=== PATIENT | male | born 1990 | race Caucasian/White ===

== ENCOUNTER 2020-07-23 18:39 | Emergency (ER) | payer OTHER ==
[~2020-07-23] VITALS: Ht 180.3 cm; Wt 82.1 kg
[2020-07-23 19:24] LABS: BASOPHILS % (AUTO) 0 % (0-1); EOSINOPHILS % (AUTO) 1 % (1-7); LYMPHOCYTES % (AUTO) 20 % (22-44); MEAN CORPUSCULAR HEMOGLOBIN 30.1 pg (27.5-34.5); MEAN CORPUSCULAR HGB CONC 34.6 g/dL (33.2-36.2); MEAN PLATELET VOLUME 8.1 fL (7.4-10.4); MONOCYTES % (AUTO) 7 % (2-9); NEUTROPHILS % (AUTO) 72 % (42-75); PLATELET COUNT 244 x10^3/uL (130-400); RED BLOOD COUNT 5.19 x10^6/uL (4.38-5.82); RED CELL DISTRIBUTION WIDTH 13.4 % (9.4-14.8)
[2020-07-23 19:25] LABS: MD NO
[2020-07-23 19:35] LABS: ALBUMIN 4.8 g/dL (3.4-5.0); ANION GAP 7 mmol/L (5-15); CALCIUM 9.8 mg/dL (8.5-10.1); CHLORIDE 105 mmol/L (98-107)
[2020-07-23 19:39] LABS: ALANINE AMINOTRANSFERASE 31 U/L (12-78); ALKALINE PHOSPHATASE 65 U/L (45-117); BILIRUBIN,TOTAL 0.6 mg/dL (0.2-1.0); CREATININE 1.18 mg/dL (0.7-1.3); TOTAL PROTEIN 8.5 g/dL (6.4-8.2)
--- NOTE | 2020-07-23 21:45 | NUR ---
ASSUMED CARE OF PATIENT. PATIENT C/O RIGHT LOWER ABD PAIN X6 HOURS. FAMILY AT BEDSIDE. VS STABLE. CALL LIGHT IN PLACE. PT SEEN BY DR SUNG. WILL CONTINUE TO MONITOR.
[2020-07-23 21:46] VITALS: BP 121/74
--- NOTE | 2020-07-23 21:55 | NUR ---
1ST CONTACT C PT. RESTING ON CART, STATES PAIN IS TOLERABLE 05/26. VSS. NS INFUSING WELL. PT TO CT VIA CART. FAMILY AT BS. WILL CTM.
[2020-07-23] MEDS ORDERED: SODIUM CHLORIDE FLUSH 10ML SYR IVF ONE (22:00)
[2020-07-23] MEDS ORDERED: SODIUM CHLORIDE 0.9% 1,000ML IVBOLUS ONE (22:00)
--- NOTE | 2020-07-23 22:05 | NUR ---
BEDSIDE REPORT GIVEN TO SHELDON HURST
--- NOTE | 2020-07-23 22:41 | NUR ---
AT TO DISCUSS CT RESULTS. AWARE OF PLAN TO DC HOME C RX.
== END 2020-07-23 23:05 | disposition home or self-care (01) ==
LOC: ED 22:59
DX: K52.29 Other allergic and dietetic gastroenteritis and colitis (principal); R10.84 Generalized abdominal pain; Z91.02 Food additives allergy status
CPT/HCPCS: 36415; 74177; 80053; 83690; 85025; 96360; 99285; J7030